=== PATIENT | male | born 1965 | race African-American/Black ===

== ENCOUNTER → 2021-05-05 16:19 | Outpatient (CLI) | payer OTHER, SELFPAY ==
--- NOTE | 2021-05-05 16:44 | RAD_ITS ---
STUDY: X-RAY - PELVIS AND LEFT HIP REASON FOR EXAM: Male, 55 years old. Hip pain. TECHNIQUE: 3 views of the pelvis and hip. COMPARISON: None. FINDINGS: There is a non-specific bowel gas pattern phleboliths.. Normal visualized soft tissue structures. Osteopenia. Normal bilateral iliac wings, sacroiliac joints and visualized sacrum. Normal bilateral superior and inferior pubic rami. Normal pubic symphysis. Normal bilateral ischial tuberosities. Proximal right hip arthroplasty in anatomic alignment. Severe arthrosis of the left hip with complete loss of articular cartilage, subchondral cyst formation, subchondral sclerosis and osteophyte formation. RAD/HIP, UNI W/ Pelvis 2-3 Views IMPRESSION: Osteopenia with severe arthrosis of the left hip. Uncomplicated right total hip arthroplasty of the visualized components. Electronically Signed: Dwight Guevara MD at 9:52 EST ,
== END ==
DX: M16.12 Unilateral primary osteoarthritis, left hip (principal)
CPT/HCPCS: 73502